=== PATIENT | male | born 1980 | race Caucasian/White ===

== ENCOUNTER 2017-09-21 02:42 | Inpatient (IN) ==
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
[2017-09-21] MEDS ORDERED: *HR* LORazepam 1 MG TABLET PO ONE (02:54)
[2017-09-21 03:29] LABS: Bilirubin,Urine Negative (Negative); Blood,Urine Negative (Negative); Clarity,Urine Cloudy (Clear); Color,Urine Dark Yellow (Yellow); Glucose,Urine (UA) Normal (Normal); Ketones,Urine 15 mg/dL (Negative); Leukocyte Esterase,Urine Trace (Negative); Nitrite,Urine Negative (Negative); Protein,Urine Trace mg/dL (Neg-Trace); Specific Gravity,Urine > 1.030 (1.010-1.025); Urobilinogen,Urine Normal (Normal)
[2017-09-21 03:31] LABS: Hyaline Casts,Urine None Seen per lpf (None-Few); RBC,Urine 0-3 per hpf (0-3); Squamous Epithelial Cell,Urine Few per lpf (None-Few); WBC,Urine 0-3 per hpf (0-3)
[2017-09-21 03:39] LABS: Amphetamine Screen,Urine Negative ng/mL (Cutoff=1000); Barbiturate Screen,Urine Negative ng/mL (Cutoff=200); Benzodiazepines Screen,Urine Negative ng/mL (Cutoff=200); Cannabinoid Screen,Urine Negative ng/mL (Cutoff = 50); Cocaine Screen,Urine Negative ng/mL (Cutoff= 300); Opiate Screen,Urine Negative ng/mL (Cutoff=300); Phencyclidine Screen,Urine Negative ng/mL (Cutoff=25)
[2017-09-21 03:47] LABS: Basophils % 0.3 %; Eosinophils % 0.1 %; Hematocrit 42.2 % (37.5-50.1); Hemoglobin 14.7 g/dL (12.9-16.9); Immature Granulocytes % 0.4 % (0-4); Lymphocytes # 1.9 K/mcL (0.6-4.6); Lymphocytes % 14.7 %; Mean Corpuscular HGB Conc 34.8 g/dL (31.6-35.5); Mean Corpuscular Hemoglobin 31.5 pg (28.0-33.3); Mean Corpuscular Volume 90.4 fL (83.0-100.0); Mean Platelet Volume 9.5 fL (9.4-12.4); Monocytes # 1.1 K/mcL (0.0-1.3); Monocytes % 8.6 %; Neutrophils # 9.6 K/mcL (1.6-8.9); Platelet Count 204 K/mcL (140-400); Red Blood Count 4.67 M/mcL (4.19-5.50); Red Cell Distribution Width 13.2 % (11.5-14.5); Segmented Neutrophils % 75.9 %
[2017-09-21 03:47] LABS: Bacteria,Urine Few per hpf (None-Few); Mucus,Urine Moderate (Few); Yeast,Urine Few per hpf (None Seen)
[2017-09-21 04:10] LABS: Acetaminophen < 10 mcg/mL (10-20); Alanine Aminotransferase 19 Units/L (7-52); Albumin 4.4 g/dL (3.5-5.7); Albumin/Globulin Ratio 1.8 (1.1-2.2); Alkaline Phosphatase 56 Units/L (34-104); Aspartate Amino Transferase 19 Units/L (13-39); BUN/Creatinine Ratio 20 (6-26); Bilirubin,Direct 0.3 mg/dL (0.0-0.2); Bilirubin,Indirect 0.8 mg/dL (0.0-1.2); Bilirubin,Total 1.1 mg/dL (0.3-1.0); Blood Urea Nitrogen 14 mg/dL (6-20); Calcium 8.6 mg/dL (8.6-10.3); Carbon Dioxide 26 mEq/L (23-29); Chloride 103 mEq/L (98-107); Ethanol < 10 mg/dL (Less than 10); Globulin 2.4 g/dL (2.4-3.5); Glucose 116 mg/dL (70-105); Osmolality,Calculated 285 (280-300); Potassium 3.4 mEq/L (3.5-5.1); Salicylate < 2.5 mg/dL (15.0-30.0); Sodium 137 mEq/L (136-145); Total Protein 6.8 g/dL (6.4-8.9); eGFR For African Americans > 60 (> 60); eGFR For Non-African Americans > 60 (> 60)
[2017-09-21 04:22] LABS: Thyroid Stimulating Hormone 0.109 mcIU/mL (0.340-5.600)
--- NOTE | 2017-09-21 07:08 | Emergency Department Note ---
Disposition Clinical Impression: Hallucinations, Medical clearance for psychiatric admission Disposition: Admitted As Inpatient Condition: Fair Referrals: NONE,PCP [Primary Care Provider] - Forms: ED Satisfaction Letter Time of Disposition: 11:28 General Adult HPI - General Chief complaint: ED Psychiatric Symptoms Stated complaint: hallucinations Time Seen by Provider: 09/21/17 02:45 Source: patient, EMS Mode of arrival: EMS Limitations: altered mental status - History of Present Illness HPI Narrative: Patient was signed out by the prior provider. Please see their recommendation for complete history and physical. Pain Scale: 0 - Related Data Home Medications Medication Instructions Recorded Confirmed No Known Home Drugs 09/21/17 09/21/17 Allergies Allergy/AdvReac Type Severity Reaction Status Date / Time vancomycin Allergy Redness of Verified 04/12/15 22:35 Skin Constitutional: Denies: fever, chills, weakness ENT ED: Denies: congestion Cardiovascular: Denies: chest pain Respiratory: Denies: dyspnea Gastrointestinal: Denies: abdominal pain Genitourinary: Denies: urgency, dysuria Musculoskeletal: Denies: back pain Integumentary: Denies: rash Neurological: Reports: confusion. Denies: headache Psychiatric: Reports: auditory hallucinations, visual hallucinations. Denies: anxiety, depression, suicidal thoughts, homicidal thoughts Past Medical History - Past Medical History Medical history: Reports: no medical history Surgical history: Reports: non-contributory Psychiatric history: Reports: no psych history - Social History Smoking Status: Current every day smoker Smokeless Tobacco Status: No Alcohol use: Reports: none Drug use: Reports: opiates, prescription drug abuse Physical Exam - General Limitations: altered mental status General appearance: alert, in no apparent distress Course Course Narrative: Briefly, the patient's a 36-year-old male who is recently incarcerated. Upon release from incarceration is noted the patient was hallucinating. Patient did have a history of benzodiazepine use prior to incarceration. Patient was noted to be given a dose of Ativan in the ED and it did not change or alter his hallucinations. At this time the patient is awaiting evaluation by psychiatry. Disposition is pending. - Consultations Consultation #1: 1A recommends an additional observation period in the ED and will admit to the Psych. Patient has already been here for 4hrs. Time: 07:12 Consultation #2: Psychiatry now wants the patient admitted to the medical service with psychiatry evaluation and consult. Concerns of hallucinations. Time: 11:28 Consultation #3: Discussed the patient with the on-call hospitalist who states he did not feel as a medical admit and will discuss the case with psychiatry. Time: 11:42 Additional Consultation(s): 1148: Hospitalist will admit the patient and psychiatry will evaluate the patient consult. Vital Signs Temperature 98.2 F 09/21/17 02:45 Pulse Rate 56 09/21/17 02:45 Respiratory Rate 12 09/21/17 02:45 Blood Pressure 127/82 09/21/17 02:45 O2 Sat by Pulse Oximetry 96 09/21/17 02:45 Temperature 98.2 F 09/21/17 02:45 Pulse Rate 78 09/21/17 06:12 Respiratory Rate 12 09/21/17 06:12 Blood Pressure 123/68 09/21/17 06:12 O2 Sat by Pulse Oximetry 98 09/21/17 06:12 Oxygen Delivery Oxygen Delivery Room Air Medical Decision Making - MDM Narrative Medical decision making narrative: Patient presents for altered mental status with hallucinations. Patient was evaluated by the prior provider workup was initiated. Patient likely has an element of drug-induced however the patient's urine drug screen initially was negative. Patient's been observed in the emergency department for 9 hours. Patient has no change in his initial presentation. Patient does not appear to have any infectious source related to meningitis or encephalitis. Patient has not had a fever neck stiffness. Patient will be admitted to the medicine service with psych consult. - Lab Data Lab results reviewed: Yes I reviewed the patient's lab results. Result diagrams: 09/21/17 03:34 09/21/17 03:34 Lab Results 09/21/17 09/21/17 09/21/17 Range/Units 03:15 03:15 03:34 WBC 12.6 H (4.3-11.1) K/mcL RBC 4.67 (4.19-5.50) M/mcL Hgb 14.7 (12.9-16.9) g/dL Hct 42.2 (37.5-50.1) % MCV 90.4 (83.0-100.0) fL MCH 31.5 (28.0-33.3) pg MCHC 34.8 (31.6-35.5) g/dL RDW 13.2 (11.5-14.5) % Plt Count 204 (140-400) K/mcL MPV 9.5 (9.4-12.4) fL Immature Gran % 0.4 (0-4) % Seg Neutrophils % 75.9 % Lymphocytes % 14.7 % Monocytes % 8.6 % Eosinophils % 0.1 % Basophils % 0.3 % Neutrophils # 9.6 H (1.6-8.9) K/mcL Lymphocytes # 1.9 (0.6-4.6) K/mcL Monocytes # 1.1 (0.0-1.3) K/mcL Eosinophils # 0.0 (0.0-0.6) K/mcL Basophils # 0.0 (0.0-0.2) K/mcL Sodium (136-145) mEq/L Potassium (3.5-5.1) mEq/L Chloride (98-107) mEq/L Carbon Dioxide (23-29) mEq/L BUN (6-20) mg/dL Creatinine (0.70-1.30) mg/dL Est GFR ( Amer) (> 60) Est GFR (Non-Af Amer) (> 60) BUN/Creatinine Ratio (6-26) Glucose (70-105) mg/dL Calculated Osmolality (280-300) Calcium (8.6-10.3) mg/dL Total Bilirubin (0.3-1.0) mg/dL Direct Bilirubin (0.0-0.2) mg/dL Indirect Bilirubin (0.0-1.2) mg/dL AST (13-39) Units/L ALT (7-52) Units/L Alkaline Phosphatase (34-104) Units/L Serum Total Protein (6.4-8.9) g/dL Albumin (3.5-5.7) g/dL Globulin (2.4-3.5) g/dL Albumin/Globulin Ratio (1.1-2.2) TSH (0.340-5.600) mcIU/mL Urine Color Dark Yellow (Yellow) Urine Clarity Cloudy A (Clear) Urine pH 6.0 (5.0-8.0) pH Units Ur Specific [place] > 1.030 H (1.010-1.025) Urine Protein Trace (Neg-Trace) mg/dL Urine Glucose (UA) Normal (Normal) mg/dL Urine Ketones 15 H (Negative) mg/dL Urine Blood Negative (Negative) Urine Nitrite Negative (Negative) Urine Bilirubin Negative (Negative) Urine Urobilinogen Normal (Normal) mg/dL Ur Leukocyte Esterase Trace H (Negative) Urine Microscopic RBC 0-3 (0-3) per hpf Urine Microscopic WBC 0-3 (0-3) per hpf Ur Squamous Epith Cells Few (None-Few) per lpf Urine Bacteria Few (None-Few) per hpf Hyaline Casts None Seen (None-Few) per lpf Urine Mucus Moderate H (Few) Urine Yeast Few H (None Seen) per hpf Salicylates (15.0-30.0) mg/dL Urine Opiates Screen Negative (Ffrjsc=948) ng/mL Acetaminophen (10-20) mcg/mL Ur Barbiturates Screen Negative (Ghixhd=609) ng/mL Ur Phencyclidine Scrn Negative (Cutoff=25) ng/mL Ur Amphetamines Screen Negative (Lhqwhn=5212) ng/mL U Benzodiazepines Scrn Negative (Qtsrym=530) ng/mL Urine Cocaine Screen Negative (Cutoff= 300) ng/mL U Marijuana (THC) Screen Negative (Cutoff = 50) ng/mL Ur Drug Screen Interp See Below Ethyl Alcohol (Less than 10) mg/dL 09/21/17 Range/Units 03:34 WBC (4.3-11.1) K/mcL RBC (4.19-5.50) M/mcL Hgb (12.9-16.9) g/dL Hct (37.5-50.1) % MCV (83.0-100.0) fL MCH (28.0-33.3) pg MCHC (31.6-35.5) g/dL RDW (11.5-14.5) % Plt Count (140-400) K/mcL MPV (9.4-12.4) fL Immature Gran % (0-4) % Seg Neutrophils % % Lymphocytes % % Monocytes % % Eosinophils % % Basophils % % Neutrophils # (1.6-8.9) K/mcL Lymphocytes # (0.6-4.6) K/mcL Monocytes # (0.0-1.3) K/mcL Eosinophils # (0.0-0.6) K/mcL Basophils # (0.0-0.2) K/mcL Sodium 137 (136-145) mEq/L Potassium 3.4 L (3.5-5.1) mEq/L Chloride 103 (98-107) mEq/L Carbon Dioxide 26 (23-29) mEq/L BUN 14 (6-20) mg/dL Creatinine 0.69 L (0.70-1.30) mg/dL Est GFR ( Amer) > 60 (> 60) Est GFR (Non-Af Amer) > 60 (> 60) BUN/Creatinine Ratio 20 (6-26) Glucose 116 H (70-105) mg/dL Calculated Osmolality 285 (280-300) Calcium 8.6 (8.6-10.3) mg/dL Total Bilirubin 1.1 H (0.3-1.0) mg/dL Direct Bilirubin 0.3 H (0.0-0.2) mg/dL Indirect Bilirubin 0.8 (0.0-1.2) mg/dL AST 19 (13-39) Units/L ALT 19 (7-52) Units/L Alkaline Phosphatase 56 (34-104) Units/L Serum Total Protein 6.8 (6.4-8.9) g/dL Albumin 4.4 (3.5-5.7) g/dL Globulin 2.4 (2.4-3.5) g/dL Albumin/Globulin Ratio 1.8 (1.1-2.2) TSH 0.109 L (0.340-5.600) mcIU/mL Urine Color (Yellow) Urine Clarity (Clear) Urine pH (5.0-8.0) pH Units Ur Specific [place] (1.010-1.025) Urine Protein (Neg-Trace) mg/dL Urine Glucose (UA) (Normal) mg/dL Urine Ketones (Negative) mg/dL Urine Blood (Negative) Urine Nitrite (Negative) Urine Bilirubin (Negative) Urine Urobilinogen (Normal) mg/dL Ur Leukocyte Esterase (Negative) Urine Microscopic RBC (0-3) per hpf Urine Microscopic WBC (0-3) per hpf Ur Squamous Epith Cells (None-Few) per lpf Urine Bacteria (None-Few) per hpf Hyaline Casts (None-Few) per lpf Urine Mucus (Few) Urine Yeast (None Seen) per hpf Salicylates < 2.5 L (15.0-30.0) mg/dL Urine Opiates Screen (Yyrygm=324) ng/mL Acetaminophen < 10 L (10-20) mcg/mL Ur Barbiturates Screen (Tfanwz=344) ng/mL Ur Phencyclidine Scrn (Cutoff=25) ng/mL Ur Amphetamines Screen (Nkmidr=8321) ng/mL U Benzodiazepines Scrn (Lrnlit=037) ng/mL Urine Cocaine Screen (Cutoff= 300) ng/mL U Marijuana (THC) Screen (Cutoff = 50) ng/mL Ur Drug Screen Interp Ethyl Alcohol < 10 (Less than 10) mg/dL - Radiology Data Radiology results reviewed: Yes I reviewed the patient's radiology results. Head CT 09/21/17 02:49 IMPRESSION: No acute intracranial abnormality. D/ / Quinton Kelly MD / Quinton Kelly MD Interpreting Provider: Quinton Kelly MD Cynthia - Cynthia Situation: Demographics Background: Presenting Complaint Assessment: Vital Signs, Patient/Family Expectation Recommendation: Barrier(s) to disposition, Recommendation based on pending studies, treatments, or consults Cynthia Report Given to: Dr. JOHN Marie Repor Time: 11:50
[2017-09-21] MEDS ORDERED: Naloxone 0.4 MG/ML INJ IVP PRN (12:06)
[2017-09-21] MEDS ORDERED: traMADol 50 MG TABLET PO PRN (12:06)
[2017-09-21] MEDS ORDERED: Acetaminophen 325 MG TABLET PO PRN (12:06)
[2017-09-21] MEDS ORDERED: *HR* LORazepam 2 MG/ML VIAL IVP PRN (12:09)
[2017-09-21] MEDS ORDERED: Haloperidol Lactate 5 MG/ML VIAL IVP PRN (12:10)
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
--- NOTE | 2017-09-21 13:07 | Electrocardiograph Report ---
[facility] Test Date: 2017-09-21 Pat Name: Maykel French Department: 103 Room: 3B41 Gender: M Snow Ranger: LIZBETH : 1980 Requested By: Ten Carrera Order Number: [id number] Reading MD: Dru Womack Measurements Intervals [place] Rate: 62 P: 76 MN: 141 QRS: 73 QRSD: 105 T: 76 QT: 431 QTc: 437 Interpretive Statements SINUS RHYTHM WITH SINUS ARRHYTHMIA Electronically Signed On 09-21-2017 13:05:18 EDT by Dru Womack
[2017-09-21] MEDS: *HR* LORazepam 2 MG/ML VIAL IVP PRN ×3 (16:25→23:47)
[2017-09-21] MEDS: *HR* Heparin 5,000 UNIT/ML VIAL SQ SCH (17:08)
[2017-09-21] MEDS ORDERED: Ziprasidone injection 20 MG/ML VIAL IM ONE (17:49)
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
[2017-09-21] MEDS ORDERED: 0.9 % Sodium Chloride 500 ML ONE (19:55)
[2017-09-21] MEDS: Dexmedetomidine HCl 400 MCG/100 ML MLS IVC SCH (20:06)
[2017-09-22] MEDS: Dexmedetomidine HCl 400 MCG/100 ML MLS IVC SCH (00:54)
[2017-09-22] MEDS: *HR* LORazepam 2 MG/ML VIAL IVP PRN ×3 (01:49→22:00)
[2017-09-22 04:50] LABS: Basophils % 0.5 %; Eosinophils % 0.5 %; Hematocrit 43.6 % (37.5-50.1); Hemoglobin 15.2 g/dL (12.9-16.9); Immature Granulocytes % 0.3 % (0-4); Lymphocytes # 2.4 K/mcL (0.6-4.6); Lymphocytes % 29.9 %; Mean Corpuscular HGB Conc 34.9 g/dL (31.6-35.5); Mean Corpuscular Hemoglobin 31.3 pg (28.0-33.3); Mean Corpuscular Volume 89.7 fL (83.0-100.0); Mean Platelet Volume 9.4 fL (9.4-12.4); Monocytes # 0.8 K/mcL (0.0-1.3); Monocytes % 10.6 %; Neutrophils # 4.6 K/mcL (1.6-8.9); Platelet Count 187 K/mcL (140-400); Red Blood Count 4.86 M/mcL (4.19-5.50); Red Cell Distribution Width 12.8 % (11.5-14.5); Segmented Neutrophils % 58.2 %
[2017-09-22 05:09] LABS: BUN/Creatinine Ratio 15 (6-26); Blood Urea Nitrogen 11 mg/dL (6-20); Calcium 8.6 mg/dL (8.6-10.3); Carbon Dioxide 29 mEq/L (23-29); Chloride 109 mEq/L (98-107); Glucose 112 mg/dL (70-105); Osmolality,Calculated 292 (280-300); Potassium 3.8 mEq/L (3.5-5.1); Sodium 141 mEq/L (136-145); eGFR For African Americans > 60 (> 60); eGFR For Non-African Americans > 60 (> 60)
[2017-09-22] MEDS: *HR* Heparin 5,000 UNIT/ML VIAL SQ SCH ×2 (07:07→16:50)
--- NOTE | 2017-09-22 08:49 | Consult Note ---
Date of Encounter: 09/22/17 Time of Encounter: 08:20 Assessment & Recommendation (1) Mental and behavioural disorders due to use of opioids, withdrawal state Current visit: Yes Status: Acute Assessment & Recommendation: Patient needs medical stabilization at present. will follow up. (2) Opioid dependence Current visit: Yes Status: Acute Qualifiers: Substance use status: in withdrawal Qualified Code(s): F11.23 - Opioid dependence with withdrawal History of Present Illness Patient: new to practice Requesting Physician: Kennedi Mejia MD Reason for consult: psychosis History of present illness: Mr. French is a 36 year old male consulted today for psychosis. Patient was seen at bedside , her GF Ms evangelista Morrissey was with him , most information was from his girl friend as patient was in and out of being sedation. Patient has long h/o no psychiatribc treatment but h/o poly substance use and has no period of soberity as per his GF of 3 years, he was pulled over and taken to prison for possession and after 3-4 days in prison he started acting weird and got worse so was sent directly to hospital , his tox was negative but he has been using xanax more than 7 mg /day and percocet and suboxone , he has been agitated and has altered mental status. 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 she herself is on suboxone and it is prescribed , she denies any drugs , she is stating he is a pot head and she is surprised his drug screen is negative. Patient stated he is [facility] and here for his [facility], he was confused and not able to give much information. Past psych none , h/o opiod, suboxone ,marijuana use , no treatment or rehab in past. Social hx , lives with GF and has 4 weeks old baby , he has court date on . A/P : OPIOID AND SEDATIVE AND HYPNOTIC WITHDRAWL . CANNABIS ABUSE BY HISTORY OPIOD DEPENDENCE. At present patient need medical withdrawal stabilization and once stable will evaluate for inpatient psychiatric treatment. recommend anticonvulsant and benzo taper . Thank you for consult and involving us in his care. will follow. CC: Kennedi Mejia MD Past Med Surg Social Fam HX - Past Medical History Medical history: no medical history - Past Psychiatric History Psychiatric history: Reports: no psych history Family psychiatric history: Unknown Family History of Suicide: Unknown - Past Surgical History Surgical History: non-contributory - Social History Smoking Status: Current every day smoker Smokeless Tobacco Status: No Alcohol use: none Drug use: opiates, marijuana, prescription drug abuse, other Medications & Allergies No Known Home Drugs 09/21/17 [History] 3 Allergy/AdvReac Type Severity Reaction Status Date / Time vancomycin Allergy Redness of Verified 04/12/15 22:35 Skin Psychiatry Exam - Constitutional Vitals: Temp Pulse Resp BP Pulse Ox 98.2 F 69 14 173/69 96 09/21/17 02:45 09/22/17 05:36 09/22/17 05:36 09/22/17 08:00 09/22/17 05:36 General appearance: average - Musculoskeletal Gait: other Station: other - Psychiatric Patient Orientation: Yes Other (patient not oriented at present) Level of alertness: Sedated Speech Volume: Soft/Quiet (unable to do other mental status examination as patient confused and sedated.) Results - Labs Labs: Laboratory Last Values WBC 8.0 K/mcL (4.3-11.1) 09/22/17 04:34 RBC 4.86 M/mcL (4.19-5.50) 09/22/17 04:34 Hgb 15.2 g/dL (12.9-16.9) 09/22/17 04:34 Hct 43.6 % (37.5-50.1) 09/22/17 04:34 MCV 89.7 fL (83.0-100.0) 09/22/17 04:34 MCH 31.3 pg (28.0-33.3) 09/22/17 04:34 MCHC 34.9 g/dL (31.6-35.5) 09/22/17 04:34 RDW 12.8 % (11.5-14.5) 09/22/17 04:34 Plt Count 187 K/mcL (140-400) 09/22/17 04:34 MPV 9.4 fL (9.4-12.4) 09/22/17 04:34 Immature Gran % 0.3 % (0-4) 09/22/17 04:34 Seg Neutrophils % 58.2 % 09/22/17 04:34 Lymphocytes % 29.9 % 09/22/17 04:34 Monocytes % 10.6 % 09/22/17 04:34 Eosinophils % 0.5 % 09/22/17 04:34 Basophils % 0.5 % 09/22/17 04:34 Neutrophils # 4.6 K/mcL (1.6-8.9) 09/22/17 04:34 Lymphocytes # 2.4 K/mcL (0.6-4.6) 09/22/17 04:34 Monocytes # 0.8 K/mcL (0.0-1.3) 09/22/17 04:34 Eosinophils # 0.0 K/mcL (0.0-0.6) 09/22/17 04:34 Basophils # 0.0 K/mcL (0.0-0.2) 09/22/17 04:34 Sodium 141 mEq/L (136-145) 09/22/17 04:34 Potassium 3.8 mEq/L (3.5-5.1) 09/22/17 04:34 Chloride 109 mEq/L (98-107) H 09/22/17 04:34 Carbon Dioxide 29 mEq/L (23-29) 09/22/17 04:34 BUN 11 mg/dL (6-20) 09/22/17 04:34 Creatinine 0.72 mg/dL (0.70-1.30) 09/22/17 04:34 Est GFR ( Amer) > 60 (> 60) 09/22/17 04:34 Est GFR (Non-Af Amer) > 60 (> 60) 09/22/17 04:34 BUN/Creatinine Ratio 15 (6-26) 09/22/17 04:34 Glucose 112 mg/dL (70-105) H 09/22/17 04:34 Calculated Osmolality 292 (280-300) 09/22/17 04:34 Calcium 8.6 mg/dL (8.6-10.3) 09/22/17 04:34 Total Bilirubin 1.1 mg/dL (0.3-1.0) H 09/21/17 03:34 Direct Bilirubin 0.3 mg/dL (0.0-0.2) H 09/21/17 03:34 Indirect Bilirubin 0.8 mg/dL (0.0-1.2) 09/21/17 03:34 AST 19 Units/L (13-39) 09/21/17 03:34 ALT 19 Units/L (7-52) 09/21/17 03:34 Alkaline Phosphatase 56 Units/L (34-104) 09/21/17 03:34 Serum Total Protein 6.8 g/dL (6.4-8.9) 09/21/17 03:34 Albumin 4.4 g/dL (3.5-5.7) 09/21/17 03:34 Globulin 2.4 g/dL (2.4-3.5) 09/21/17 03:34 Albumin/Globulin Ratio 1.8 (1.1-2.2) 09/21/17 03:34 TSH 0.109 mcIU/mL (0.340-5.600) L 09/21/17 03:34 Free T4 1.12 ng/dl (0.70-2.00) 09/21/17 13:29 Urine Color Dark Yellow (Yellow) 09/21/17 03:15 Urine Clarity Cloudy (Clear) A 09/21/17 03:15 Urine pH 6.0 pH Units (5.0-8.0) 09/21/17 03:15 Ur Specific [place] > 1.030 (1.010-1.025) H 09/21/17 03:15 Urine Protein Trace mg/dL (Neg-Trace) 09/21/17 03:15 Urine Glucose (UA) Normal mg/dL (Normal) 09/21/17 03:15 Urine Ketones 15 mg/dL (Negative) H 09/21/17 03:15 Urine Blood Negative (Negative) 09/21/17 03:15 Urine Nitrite Negative (Negative) 09/21/17 03:15 Urine Bilirubin Negative (Negative) 09/21/17 03:15 Urine Urobilinogen Normal mg/dL (Normal) 09/21/17 03:15 Ur Leukocyte Esterase Trace (Negative) H 09/21/17 03:15 Urine Microscopic RBC 0-3 per hpf (0-3) 09/21/17 03:15 Urine Microscopic WBC 0-3 per hpf (0-3) 09/21/17 03:15 Ur Squamous Epith Cells Few per lpf (None-Few) 09/21/17 03:15 Urine Bacteria Few per hpf (None-Few) 09/21/17 03:15 Hyaline Casts None Seen per lpf (None-Few) 09/21/17 03:15 Urine Mucus Moderate (Few) H 09/21/17 03:15 Urine Yeast Few per hpf (None Seen) H 09/21/17 03:15 Salicylates < 2.5 mg/dL (15.0-30.0) L 09/21/17 03:34 Urine Opiates Screen Negative ng/mL (Wmfstb=925) 09/21/17 03:15 Acetaminophen < 10 mcg/mL (10-20) L 09/21/17 03:34 Ur Barbiturates Screen Negative ng/mL (Fnejub=975) 09/21/17 03:15 Ur Phencyclidine Scrn Negative ng/mL (Cutoff=25) 09/21/17 03:15 Ur Amphetamines Screen Negative ng/mL (Qbjqud=4551) 09/21/17 03:15 U Benzodiazepines Scrn Negative ng/mL (Oahmqz=796) 09/21/17 03:15 Urine Cocaine Screen Negative ng/mL (Cutoff= 300) 09/21/17 03:15 U Marijuana (THC) Screen Negative ng/mL (Cutoff = 50) 09/21/17 03:15 Ur Drug Screen Interp See Below 09/21/17 03:15 Ethyl Alcohol < 10 mg/dL (Less than 10) 09/21/17 03:34 Hep Bs Antigen Cancelled 09/21/17 20:38 Hepatitis C Ab Screen Cancelled 09/21/17 20:38 HIV Ag/Ab Combo Qual Cancelled 09/21/17 20:38 Consult Discharge Plan - Plan Referrals: NONE,PCP [Primary Care Provider] -
[2017-09-22] MEDS: Nicotine 21 MG PATCH.TD24 TD SCH ×2 (13:27→22:00)
[2017-09-22] MEDS ORDERED: OLANZapine 10 MG VIAL IM PRN (14:48)
[2017-09-22] MEDS ORDERED: *HR* LORazepam 2 MG/ML VIAL IVP PRN (14:49)
[2017-09-22] MEDS ORDERED: Ibuprofen 800 MG TABLET PO PRN (15:00)
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
[2017-09-23 03:54] LABS: Basophils # 0.1 K/mcL (0.0-0.2); Basophils % 0.5 %; Eosinophils # 0.1 K/mcL (0.0-0.6); Eosinophils % 0.7 %; Hemoglobin 14.3 g/dL (12.9-16.9); Immature Granulocytes % 0.4 % (0-4); Lymphocytes # 3.9 K/mcL (0.6-4.6); Lymphocytes % 34.3 %; Mean Corpuscular HGB Conc 34.9 g/dL (31.6-35.5); Mean Corpuscular Hemoglobin 31.3 pg (28.0-33.3); Mean Corpuscular Volume 89.7 fL (83.0-100.0); Mean Platelet Volume 9.4 fL (9.4-12.4); Monocytes # 0.9 K/mcL (0.0-1.3); Monocytes % 8.3 %; Neutrophils # 6.3 K/mcL (1.6-8.9); Platelet Count 199 K/mcL (140-400); Red Blood Count 4.57 M/mcL (4.19-5.50); Segmented Neutrophils % 55.8 %
[2017-09-23 04:04] LABS: BUN/Creatinine Ratio 18 (6-26); Blood Urea Nitrogen 11 mg/dL (6-20); Calcium 8.4 mg/dL (8.6-10.3); Carbon Dioxide 26 mEq/L (23-29); Chloride 109 mEq/L (98-107); Glucose 118 mg/dL (70-105); Osmolality,Calculated 292 (280-300); Potassium 3.4 mEq/L (3.5-5.1); Sodium 141 mEq/L (136-145); eGFR For African Americans > 60 (> 60); eGFR For Non-African Americans > 60 (> 60)
[2017-09-23] MEDS: *HR* Heparin 5,000 UNIT/ML VIAL SQ SCH ×2 (05:05→18:05)
[2017-09-23] MEDS: *HR* LORazepam 2 MG/ML VIAL IVP PRN ×3 (05:05→08:47)
--- NOTE | 2017-09-23 11:56 | Internal Med Progress Note ---
Date of Encounter: 09/23/17 Time of Encounter: 11:54 - Assessment and plan (1) Hallucinations Current Visit: Yes Status: Acute Assessment and plan: Having auditory hallucinations today. Girlfriend thinks he is still paranoid. He was previously having symptoms of both visual and auditory hallucinations, delusions, paranoia, agitation, and insomnia. Psychiatry consulted; appreciate input. At this point, I do not think he is withdrawing from any drugs or medications. He is completely asymptomatic medically. However, he is still having hallucinations. Now that he is medically clear, will get psychiatry to reevaluate him today and consider inpatient psychiatric treatment. We will continue CIWA protocol with ativan PRN for withdrawal. We will also add zyprexa IM PRN for agitation. (2) Agitation Current Visit: Yes Status: Acute Assessment and plan: Management as per above. (3) Delusion Current Visit: Yes Status: Acute Assessment and plan: Management as per above. (4) Paranoia Current Visit: Yes Status: Acute Assessment and plan: Management as per above. (5) Opioid withdrawal Current Visit: Yes Status: Resolved Assessment and plan: Resolved. Management as per above. (6) Benzodiazepine withdrawal Current Visit: Yes Status: Resolved Assessment and plan: Resolved. Management as per above. Qualifiers: Complication of substance-induced condition: with unspecified complication Qualified Code(s): F13.239 - Sedative, hypnotic or anxiolytic dependence with withdrawal, unspecified (7) Nicotine dependence Current Visit: Yes Status: Acute Assessment and plan: Continue nicotine transdermal 21 mg QD. Counselled on smoking cessation. Qualifiers: Nicotine product type: cigarettes Substance use status: unspecified nicotine-induced disorder Qualified Code(s): F17.219 - Nicotine dependence, cigarettes, with unspecified nicotine-induced disorders (8) Hypokalemia Current Visit: Yes Status: Acute Assessment and plan: Borderline low. Give KCl 20 mEq PO once. Recheck BMP in AM. (9) DVT prophylaxis Current Visit: Yes Status: Acute Assessment and plan: Continue SQ heparin. - Time Spent With Patient Total time spent is greater than 50% in coordination of care (as documented) at patient's floor/unit and/or counseling patient: less than 15 minutes - Subjective Interval history: Patient had no acute events overnight. Nursing staff states that needed 2 doses of Ativan overnight per CIWA scale, but was also arguing with girlfriend. No medications required so far today. He is resting peacefully in bed with girlfriend. He is still having auditory hallucinations at this time. He seems to be less paranoid. He has no medical complaints at this time and states that he is feeling "good." - Constitutional Vitals: Temp Pulse Resp BP Pulse Ox 98.9 F 70 16 129/84 98 09/23/17 11:33 09/23/17 11:33 09/23/17 11:33 09/23/17 11:33 09/23/17 11:33 General appearance: Present: cooperative, A&O X 3, pleasant, no acute distress, answers questions appropriately - Respiratory Respiratory exam: Present: CTAB. Absent: accessory muscle use, rales, rhonchi, wheezes Additional comments: Normal WOB - Cardiovascular Cardiovascular exam: Present: RRR, +S1, +S2. Absent: diastolic murmur, gallop, rubs, systolic murmur Additional comments: No BLE edema - GI/Abdominal GI/Abdominal exam: Present: normal bowel sounds, soft. Absent: distended, hepatomegaly, mass, splenomegaly, tenderness - Psychiatric Psychiatric exam: Present: normal affect, normal mood. Absent: agitated, anxious, depressed Additional comments: Auditory hallucinations - Skin Skin exam: Present: dry, intact, warm. Absent: cyanosis, rash Internal Medicine: Result - Labs CBC & Chem 7: 09/23/17 03:32 09/23/17 03:32 Labs: Short CBC 09/23/17 Range/Units 03:32 WBC 11.2 H (4.3-11.1) K/mcL Hgb 14.3 (12.9-16.9) g/dL Hct 41.0 (37.5-50.1) % Plt Count 199 (140-400) K/mcL Neutrophils # 6.3 (1.6-8.9) K/mcL BMP 09/23/17 03:32 Sodium 141 Potassium 3.4 L Chloride 109 H Carbon Dioxide 26 BUN 11 Creatinine 0.61 L Glucose 118 H Calcium 8.4 L Consult Discharge Plan - Plan Referrals: Jerry Enriquez DO [Resident] - 09/30/17 10:15 am
--- NOTE | 2017-09-23 13:38 | Consult Note ---
Date of Encounter: 09/23/17 Time of Encounter: 13:32 Assessment & Recommendation (1) Benzodiazepine withdrawal Current visit: Yes Status: Resolved Assessment & Recommendation: Would benefit from an antipsychotic. Recommend scheduling an antipsychotic as opposed to giving one prn. Doubt this is a primary thought disorder. Suspect psychosis related to benzodiazepine withdrawal. Can start Risperdal 1mg BID or Zyprexa 5mg BID with Benadryl or Cogentin available as a prn in case of any EPS side effects. Doubt he needs medication nursing home but an antipsychotic should help him clear faster. Can admit to inpatient psych but needs to be off IV meds and finished with needing to medicate any acute benzo withdrawal first. Qualifiers: Complication of substance-induced condition: with unspecified complication Qualified Code(s): F13.239 - Sedative, hypnotic or anxiolytic dependence with withdrawal, unspecified History of Present Illness Requesting Physician: Kennedi Mejia MD Reason for consult: psychosis History of present illness: Mr. French is a 36 year old male who was admitted medically from alf secondary to acute confusion. Client admits to using Percocet, Suboxone, and Xanax prior to his arrest. Girlfriend present and states client used large doses of Xanax. Presentation likely secondary to benzodiazepine withdrawal. Client still having hallucinatory experiences. When first admitted he was agitated in addition to being floridly psychotic. He is now calm. Precedx drip discontinued yesterday. Last dose of Ativan given this morning. Vital signs have been stable. Client is still very fearful. Accepts that some of what he went through was related to drug use but still believes a lot of it was real. Still hearing voices telling him he is . Tearful. Denies SI/HI but girlfriend states he cannot return home in this state as they have young children in the house. No history of mental illness. Would benefit from an antipsychotic. Client is agreeable. CC: Kennedi Mejia MD Past Med Surg Social Fam HX - Past Medical History Medical history: no medical history - Past Psychiatric History Psychiatric history: Reports: no psych history Family psychiatric history: No Family History of Suicide: Unknown - Past Surgical History Surgical History: non-contributory - Social History Smoking Status: Current every day smoker Smokeless Tobacco Status: No Alcohol use: none Drug use: opiates, marijuana, prescription drug abuse, other Medications & Allergies No Known Home Drugs 09/21/17 [History] 3 Allergy/AdvReac Type Severity Reaction Status Date / Time vancomycin Allergy Redness of Verified 04/12/15 22:35 Skin Review of Systems Constitutional: Denies: fever, chills, weakness, weight change Eyes: Denies: eye pain, vision change Ears, Nose, Throat: Denies: ear pain, throat pain, dental pain, hearing loss, congestion Cardiovascular: Denies: chest pain, palpitations, dyspnea on exertion Respiratory: Denies: cough, dyspnea, wheezes Gastrointestinal: Denies: abdominal pain, nausea, vomiting, diarrhea, constipation Genitourinary male: Denies: urgency, dysuria, frequency, genital lesions Musculoskeletal: Denies: joint swelling, joint pain Integumentary: Denies: rash, lesions, pruritus Neurological: Denies: headache, weakness, numbness, memory loss Endocrine: Denies: fatigue, heat or cold intolerance Hematologic/Lymphatic: Denies: easy bruising, lymphadenopathy Allergic/Immunologic: Denies: urticaria, itchy eyes Psychiatry Exam - Constitutional Vitals: Temp Pulse Resp BP Pulse Ox 98.9 F 70 16 129/84 98 09/23/17 11:33 09/23/17 11:33 09/23/17 11:33 09/23/17 11:33 09/23/17 11:33 General appearance: age & developmentally appropriate, well-groomed, well- nourished - Musculoskeletal Gait: normal Station: relaxed Strength & Tone: normal for patient - Psychiatric Patient Orientation: Yes Person, Yes Time, Yes Place Level of alertness: Alert Behavior: calm, cooperative Psychomotor activity: Normal Eye Contact: Maintains Eye Contact Mood Description: Anxious Affect description: congruent with mood Speech Volume: Normal Speech pattern: normal rate, normal rhythm, normal tone, fluent, spontaneous Language & Vocabulary: consistent with education Thought Process: Linear, Goal Oriented Thought Content: No Suicidal ideation, No Homicidal ideation, Yes Overt delusions, Yes Paranoid delusion Perceptual Disturbances: Yes Auditory hallucinations Attention Span Ability: Capable of Focused Attention Memory Description: Grossly Intact Patient Reliability: Reliable Historian Fund of knowledge: Yes abstraction ability, Yes aware of current events Intelligence Estimate: Below Average Judgment: Limited Insight: Partial Results - Labs Labs: Laboratory Last Values WBC 11.2 K/mcL (4.3-11.1) H 09/23/17 03:32 RBC 4.57 M/mcL (4.19-5.50) 09/23/17 03:32 Hgb 14.3 g/dL (12.9-16.9) 09/23/17 03:32 Hct 41.0 % (37.5-50.1) 09/23/17 03:32 MCV 89.7 fL (83.0-100.0) 09/23/17 03:32 MCH 31.3 pg (28.0-33.3) 09/23/17 03:32 MCHC 34.9 g/dL (31.6-35.5) 09/23/17 03:32 RDW 13.0 % (11.5-14.5) 09/23/17 03:32 Plt Count 199 K/mcL (140-400) 09/23/17 03:32 MPV 9.4 fL (9.4-12.4) 09/23/17 03:32 Immature Gran % 0.4 % (0-4) 09/23/17 03:32 Seg Neutrophils % 55.8 % 09/23/17 03:32 Lymphocytes % 34.3 % 09/23/17 03:32 Monocytes % 8.3 % 09/23/17 03:32 Eosinophils % 0.7 % 09/23/17 03:32 Basophils % 0.5 % 09/23/17 03:32 Neutrophils # 6.3 K/mcL (1.6-8.9) 09/23/17 03:32 Lymphocytes # 3.9 K/mcL (0.6-4.6) 09/23/17 03:32 Monocytes # 0.9 K/mcL (0.0-1.3) 09/23/17 03:32 Eosinophils # 0.1 K/mcL (0.0-0.6) 09/23/17 03:32 Basophils # 0.1 K/mcL (0.0-0.2) 09/23/17 03:32 Sodium 141 mEq/L (136-145) 09/23/17 03:32 Potassium 3.4 mEq/L (3.5-5.1) L 09/23/17 03:32 Chloride 109 mEq/L (98-107) H 09/23/17 03:32 Carbon Dioxide 26 mEq/L (23-29) 09/23/17 03:32 BUN 11 mg/dL (6-20) 09/23/17 03:32 Creatinine 0.61 mg/dL (0.70-1.30) L 09/23/17 03:32 Est GFR ( Amer) > 60 (> 60) 09/23/17 03:32 Est GFR (Non-Af Amer) > 60 (> 60) 09/23/17 03:32 BUN/Creatinine Ratio 18 (6-26) 09/23/17 03:32 Glucose 118 mg/dL (70-105) H 09/23/17 03:32 Calculated Osmolality 292 (280-300) 09/23/17 03:32 Calcium 8.4 mg/dL (8.6-10.3) L 09/23/17 03:32 Total Bilirubin 1.1 mg/dL (0.3-1.0) H 09/21/17 03:34 Direct Bilirubin 0.3 mg/dL (0.0-0.2) H 09/21/17 03:34 Indirect Bilirubin 0.8 mg/dL (0.0-1.2) 09/21/17 03:34 AST 19 Units/L (13-39) 09/21/17 03:34 ALT 19 Units/L (7-52) 09/21/17 03:34 Alkaline Phosphatase 56 Units/L (34-104) 09/21/17 03:34 Serum Total Protein 6.8 g/dL (6.4-8.9) 09/21/17 03:34 Albumin 4.4 g/dL (3.5-5.7) 09/21/17 03:34 Globulin 2.4 g/dL (2.4-3.5) 09/21/17 03:34 Albumin/Globulin Ratio 1.8 (1.1-2.2) 09/21/17 03:34 TSH 0.109 mcIU/mL (0.340-5.600) L 09/21/17 03:34 Free T4 1.12 ng/dl (0.70-2.00) 09/21/17 13:29 Urine Color Dark Yellow (Yellow) 09/21/17 03:15 Urine Clarity Cloudy (Clear) A 09/21/17 03:15 Urine pH 6.0 pH Units (5.0-8.0) 09/21/17 03:15 Ur Specific [place] > 1.030 (1.010-1.025) H 09/21/17 03:15 Urine Protein Trace mg/dL (Neg-Trace) 09/21/17 03:15 Urine Glucose (UA) Normal mg/dL (Normal) 09/21/17 03:15 Urine Ketones 15 mg/dL (Negative) H 09/21/17 03:15 Urine Blood Negative (Negative) 09/21/17 03:15 Urine Nitrite Negative (Negative) 09/21/17 03:15 Urine Bilirubin Negative (Negative) 09/21/17 03:15 Urine Urobilinogen Normal mg/dL (Normal) 09/21/17 03:15 Ur Leukocyte Esterase Trace (Negative) H 09/21/17 03:15 Urine Microscopic RBC 0-3 per hpf (0-3) 09/21/17 03:15 Urine Microscopic WBC 0-3 per hpf (0-3) 09/21/17 03:15 Ur Squamous Epith Cells Few per lpf (None-Few) 09/21/17 03:15 Urine Bacteria Few per hpf (None-Few) 09/21/17 03:15 Hyaline Casts None Seen per lpf (None-Few) 09/21/17 03:15 Urine Mucus Moderate (Few) H 09/21/17 03:15 Urine Yeast Few per hpf (None Seen) H 09/21/17 03:15 Salicylates < 2.5 mg/dL (15.0-30.0) L 09/21/17 03:34 Urine Opiates Screen Negative ng/mL (Uozrfc=393) 09/21/17 03:15 Acetaminophen < 10 mcg/mL (10-20) L 09/21/17 03:34 Ur Barbiturates Screen Negative ng/mL (Jykgmu=927) 09/21/17 03:15 Ur Phencyclidine Scrn Negative ng/mL (Cutoff=25) 09/21/17 03:15 Ur Amphetamines Screen Negative ng/mL (Oxkbqk=2172) 09/21/17 03:15 U Benzodiazepines Scrn Negative ng/mL (Otxjzw=965) 09/21/17 03:15 Urine Cocaine Screen Negative ng/mL (Cutoff= 300) 09/21/17 03:15 U Marijuana (THC) Screen Negative ng/mL (Cutoff = 50) 09/21/17 03:15 Ur Drug Screen Interp See Below 09/21/17 03:15 Ethyl Alcohol < 10 mg/dL (Less than 10) 09/21/17 03:34 Hep Bs Antigen Cancelled 09/21/17 20:38 Hepatitis C Ab Screen Cancelled 09/21/17 20:38 HIV Ag/Ab Combo Qual Cancelled 09/21/17 20:38 Consult Discharge Plan - Plan Referrals: Jerry Enriquez DO [Resident] - 09/30/17 10:15 am
[2017-09-23] MEDS ORDERED: OLANZapine 5 MG TAB.RAPDIS PO SCH (14:45)
[2017-09-23 15:10] VITALS: BP 128/79
--- NOTE | 2017-09-23 17:38 | Discharge Summary ---
- NOTES TO OUTPATIENT PROVIDER Notes to Outpatient Provider: Follow up with psychiatrist at acute inpatient psychiatric floor. Recheck BMP tomorrow (hypokalemia). Orders not resulted at time of discharge: Pending orders 09/24/17 04:00 Basic Metabolic Panel AM 0400 CBC [Complete Blood Count] [HEME] AM 0400 Date of Encounter: 09/23/17 Time of Encounter: 17:36 - Discharge Diagnosis (1) Hallucinations Priority: Primary Status: Acute (2) Agitation Priority: Secondary Status: Acute (3) Delusion Priority: Secondary Status: Acute (4) Paranoia Priority: Secondary Status: Acute (5) Opioid withdrawal Priority: Secondary Status: Resolved (6) Benzodiazepine withdrawal Priority: Secondary Status: Resolved Qualifiers: Complication of substance-induced condition: with unspecified complication Qualified Code(s): F13.239 - Sedative, hypnotic or anxiolytic dependence with withdrawal, unspecified (7) Nicotine dependence Priority: Secondary Status: Acute Qualifiers: Nicotine product type: cigarettes Substance use status: unspecified nicotine-induced disorder Qualified Code(s): F17.219 - Nicotine dependence, cigarettes, with unspecified nicotine-induced disorders (8) Hypokalemia Priority: Secondary Status: Acute (9) DVT prophylaxis Priority: Secondary Status: Acute Hospital course: Mr. French is a 36 year old male admitted for hallucinations likely secondary to acute psychosis and drug withdrawal. He was admitted to step down unit with telemetry. He was placed on CIWA protocol for likely benzodiazepine and opioid withdrawal. He did have agitation the first night, controlled by haldol and ativan. He was subsequently started on precedex drip. This was weaned and discontinued the next day. He did not have any more agitation. He did not exhibit any withdrawal symptoms. He was medically cleared. He still continued to have hallucinations. Psychiatry was consulted and recommended starting antipsychotic. He was started on zyprexa 5 mg PO BID. He was accepted for admission to inpatient psychiatry on [facility]. He was given KCl for mild hypokalemia. He will be discharged to inpatient psychiatry. They can recheck BMP tomorrow. Patient has met maximum benefit of this hospitalization and will be transferred to inpatient psychiatry in stable condition. Discharge discussed with: patient, family, nurse, case management, other ( Pharmacist) - Time Spent with Patient Total time spent providing and/or coordinating discharge services: Greater than 30 minutes - Discharge Medications Home Medications: No Known Home Drugs 09/21/17 [History] Allergies/Adverse Reactions: 3 Allergy/AdvReac Type Severity Reaction Status Date / Time vancomycin Allergy Redness of Verified 04/12/15 22:35 Skin Date of admission: 09/22/17 15:55 Primary care physician: PCP NONE Consults: Psychiatry 09/23/17 12:11 Consult to Nutrition [CONS] Routine Comment: Consulting Provider: NUTRITION Reason for Dietary Consult: Diet Education PO Supplementation Discharging clinician: Fuentes Mireles Anticipated date of discharge: 09/23/17 - Constitutional Vitals: Temp Pulse Resp BP Pulse Ox 98.6 F 75 16 128/79 98 09/23/17 15:05 09/23/17 15:05 09/23/17 15:05 09/23/17 15:05 09/23/17 15:05 Exam: PLEASE SEE EXAMINATION FROM TODAY'S PROGRESS NOTE - Patient Status Disposition: Admitted As Inpatient Condition: Good Functional capacity at discharge: independent ambulation Overall status at discharge: patient is progressing back to baseline - Discharge Instructions Follow Up With: Jerry Enriquez DO [Resident] - 09/30/17 10:15 am Additional Instructions: Follow up with psychiatrist at acute inpatient psychiatric floor. Recheck BMP tomorrow (hypokalemia). - Diet and Activity Activity: resume usual activities as tolerated Diet: regular diet (Ensure Enlive TID)
== END 2017-09-23 18:33 | DRG 773 ==
LOC: EMEROO 02:42 → 3BNU 02:42 → 2NNU 19:50
PROVIDERS: ADMIT Internal Medicine; ATTEND Internal Medicine

== ENCOUNTER 2017-09-23 18:39 | Inpatient (IN) ==
[2017-09-23] MEDS ORDERED: traZODone 50 MG TABLET PO PRN (18:46)
[2017-09-23] MEDS ORDERED: *HR* LORazepam 1 MG TABLET PO PRN (18:46)
[2017-09-23] MEDS ORDERED: MOM Conc 10 ML UD.LIQ PO PRN (18:46)
[2017-09-23] MEDS ORDERED: hydrOXYzine pamoate 25 MG CAPSULE PO PRN (18:46)
[2017-09-23] MEDS ORDERED: Haloperidol Lactate 5 MG/ML VIAL IM PRN (18:46)
[2017-09-23] MEDS ORDERED: Ibuprofen 400 MG TABLET PO PRN (18:46)
[2017-09-23] MEDS ORDERED: *HR* LORazepam 2 MG/ML VIAL IM PRN (18:46)
[2017-09-23] MEDS ORDERED: Mag Hydrox/Al Hydrox/Simeth 30 ML UDC PO PRN (18:46)
[2017-09-24] MEDS: risperiDONE 1 MG TABLET PO SCH (09:57)
[2017-09-24] MEDS: Nicotine 21 MG PATCH.TD24 TD SCH (09:57)
--- NOTE | 2017-09-24 10:16 | Psychiatry History & Physical ---
Date of Encounter: 09/24/17 Time of Encounter: 10:09 History of Present Illness Patient Stated Chief Complaint: psychosis Medicare Admission Attestation: For traditional Medicare patients the provided hospital inpatient services are reasonable and necessary and in the case of services not specified as inpatient -only under 42 CFR 419.22 (n), that they are appropriately provided as inpatient services in accordance 42 CFR 412.3. For Critical Access Hospital the patient may reasonably be expected to be discharged or transferred to a hospital within 96 hours after admission to the Critical Access Hospital. Admitted From: Intrahospital Transfer Plans for Post Hospital Care: Home History of Present Illness: Mr. French is a 36 year old male who was transferred from the medical floor due to psychosis. He had been in detention where he likely experienced acute benzo withdrawal. Was treated for Xanax withdrawal on the medical floor. Calmed significantly but had residual psychosis. Continued to have AH and fear of the detention and what was done to him there. See psychiatry consult note for more details. No psych history. Admitted to [facility] last night and started on Risperdal. Already clearing. AH have stopped. Still very delusional about what happened to him in the detention but he is less paranoid overall. Girlfriend is supportive and she was able to provide a lot of information yesterday. She was reluctant to have him at home in such a psychotic state as they have a . Will get feedback from her today regarding her comfort level having him home. 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 Client is willing to go to rehab to avoid [facility]. Facing felony charges for drug trafficking. Will give him one more night on the antipsychotics and discharge tomorrow provided girlfriend feels safe. Will have social welfare clerk call him Tuesday with rehab options. Past Med Surg Social Fam HX - Past Medical History Medical history: no medical history - Past Psychiatric History Psychiatric history: Reports: no psych history Family psychiatric history: No Family History of Suicide: Unknown - Past Surgical History Surgical History: non-contributory - Social History Smoking Status: Current every day smoker Smokeless Tobacco Status: No Alcohol use: none Drug use: opiates, marijuana, prescription drug abuse - Family History Mother Hx Family Endocrine Disorder: Yes (DM) Father Hx Family Cardiac Disorders: Yes (heart disease) Hx Family Cancer: Yes (pancriatic cancer) Medications & Allergies No Known Home Drugs 09/21/17 [History] 3 Allergy/AdvReac Type Severity Reaction Status Date / Time vancomycin Allergy Redness of Verified 04/12/15 22:35 Skin Review of Systems Constitutional: Denies: fever, chills, weakness, weight change Eyes: Denies: eye pain, vision change Ears, Nose, Throat: Denies: ear pain, throat pain, dental pain, hearing loss, congestion Cardiovascular: Denies: chest pain, palpitations, dyspnea on exertion Respiratory: Denies: cough, dyspnea, wheezes Gastrointestinal: Denies: abdominal pain, nausea, vomiting, diarrhea, constipation Genitourinary male: Denies: urgency, dysuria, frequency, genital lesions Musculoskeletal: Denies: joint swelling, joint pain Integumentary: Denies: rash, lesions, pruritus Neurological: Denies: headache, weakness, numbness, memory loss Endocrine: Denies: fatigue, heat or cold intolerance Hematologic/Lymphatic: Denies: easy bruising, lymphadenopathy Allergic/Immunologic: Denies: urticaria, itchy eyes Exam - HEENT Head exam IM: Present: atraumatic Eye exam IM: Present: EOMI, normal appearance, PERRL ENT exam IM: Present: mucous membranes dry - Neurological Neurological exam: Present: CN II-XII intact - Respiratory Respiratory exam IM: Present: CTAB - GI/Abdominal GI/Abdominal exam IM: Present: normal bowel sounds, soft. Absent: tenderness - Extremities Extremities exam IM: Present: full ROM - Skin Skin exam IM: Present: dry, warm - Constitutional Vitals: Temp Pulse Resp BP 98.9 F 60 16 113/79 09/23/17 21:00 09/23/17 21:00 09/23/17 21:00 09/23/17 21:00 General appearance: age & developmentally appropriate, well-groomed, well- nourished - Musculoskeletal Gait: normal Station: relaxed Strength & Tone: normal for patient - Psychiatric Patient Orientation: Yes Person, Yes Time, Yes Place Level of alertness: Alert Behavior: calm, cooperative Psychomotor activity: Normal Eye Contact: Maintains Eye Contact Mood Description: Euthymic/stable Affect description: congruent with mood, full range Speech Volume: Normal Speech pattern: normal rate, normal rhythm, normal tone, fluent, spontaneous Language & Vocabulary: consistent with education Thought Process: Linear, Goal Oriented Thought Content: No Suicidal ideation, No Homicidal ideation, Yes Overt delusions, Yes Paranoid delusion Perceptual Disturbances: No Auditory hallucinations, No Visual hallucinations Attention Span Ability: Capable of Focused Attention Memory Description: Grossly Intact Patient Reliability: Reliable Historian Fund of knowledge: Yes abstraction ability, Yes average, Yes aware of current events Intelligence Estimate: Below Average Judgment: Limited Insight: Partial Assessment and Plan (1) Benzodiazepine withdrawal Current visit: No Status: Resolved Plan: Admit inpatient for safety and stabilization, Close observation, Suicide Precautions per unit protocol, Encourage participation in unit milieu, Group Therapy, Monitor sleep, Monitor appetite Risks, benefits, side effects, alternatives discussed w/pt: Yes Patient agreeable to treatment: Yes Plans for Post Hospital Care: Home Estimated Length of Stay (Days): 2 Qualifiers: Complication of substance-induced condition: with unspecified complication Qualified Code(s): F13.239 - Sedative, hypnotic or anxiolytic dependence with withdrawal, unspecified (2) Substance abuse withdrawal, with perceptual disturbance Current visit: Yes Status: Acute Plan: Admit inpatient for safety and stabilization, Close observation, Suicide Precautions per unit protocol, Encourage participation in unit milieu, Group Therapy, Monitor sleep, Monitor appetite Risks, benefits, side effects, alternatives discussed w/pt: Yes Patient agreeable to treatment: Yes Plans for Post Hospital Care: Home Estimated Length of Stay (Days): 2
[2017-09-25] MEDS: risperiDONE 1 MG TABLET PO SCH (08:28)
[2017-09-25] MEDS: Nicotine 21 MG PATCH.TD24 TD SCH (08:28)
--- NOTE | 2017-09-25 09:31 | Discharge Summary ---
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, hypnotic or anxiolytic dependence with withdrawal, unspecified (2) Substance abuse withdrawal, with perceptual disturbance Status: Acute Medications - Discharge Medications Prescriptions: risperiDONE [RisperDAL] 1 mg PO DAILY #14 tablet risperiDONE [RisperDAL] 1 mg PO DAILY #14 tablet 09/25/17 [Rx] 3 Allergy/AdvReac Type Severity Reaction Status Date / Time vancomycin Allergy Redness of Verified 04/12/15 22:35 Skin Provider Date of admission: 09/23/17 18:39 Discharging clinician: Lubna Rodriguez Psychiatry Exam - Constitutional Vitals: Temp Pulse Resp BP 98.6 F 80 20 134/106 09/24/17 21:00 09/24/17 21:00 09/24/17 21:00 09/24/17 21:00 General appearance: age & developmentally appropriate, well-groomed, well- nourished - Musculoskeletal Gait: normal Station: relaxed Strength & Tone: normal for patient - Psychiatric Patient Orientation: Yes Person, Yes Time, Yes Place Level of alertness: Alert Behavior: calm Psychomotor activity: Normal Eye Contact: Maintains Eye Contact Mood Description: Euthymic/stable Affect description: congruent with mood, full range Speech Volume: Normal Speech pattern: normal rate, normal rhythm, normal tone, fluent, spontaneous Language & Vocabulary: consistent with education Thought Process: Linear, Goal Oriented Thought Content: No Suicidal ideation, No Homicidal ideation, No Overt delusions Perceptual Disturbances: No Auditory hallucinations, No Visual hallucinations Attention Span Ability: Capable of Focused Attention Memory Description: Grossly Intact Patient Reliability: Reliable Historian Fund of knowledge: Yes abstraction ability, Yes aware of current events Intelligence Estimate: Below Average Judgment: Fair Insight: Partial Hospital Course Hospital course: Mr. French is a 36 year old male who was admitted from the medical floor. He was admitted to the hospital from retirement in an acute psychotic state. [place] to be due to benzodiazepine withdrawal. Given benzos on medical floor and transferred to [facility] due to residual psychosis. Started on Risperdal and he cleared very quickly. No longer hearing voices. Paranoia about retirement has decreased significantly. In a good mood today. Bright, smiling, future oriented. Denies SI/HI. Never had any thoughts of harming self or others. Fully cooperative in the hospital. Girlfriend supportive and he will be returning to live with her and children. Will continue Risperdal as an outpatient for a couple of weeks and have him follow-up with a psychiatrist or PCP. Doubt he needs to stay on the medication longterm. Will have outreach and education social worker call him tomorrow about follow-up and to provide recommendations for substance abuse treatment. - Time Spent with Patient Total time spent providing and/or coordinating discharge services: Assessment and Plan - Patient/Caregiver Discharge Instructions Activity: resume usual activities as tolerated Diet: regular diet - Follow up Plan Follow up with: Gladis Diallo [facility] [Outside] ([facility] staff will contact you with appointment dates and times) Functional capacity at discharge: independent ambulation Overall status at discharge: Stable Disposition: Home, Self-Care Quality - Multiple Antipsychotics Patient discharged on 2 or more antipsychotic medications: No Procedures - Procedures Procedures: Medication Management, Crisis Stabilization, Supportive Therapy, Group Therapy
[2017-09-25 09:32] VITALS: BP 158/97
== END 2017-09-25 10:40 | disposition home or self-care (01) | DRG 773 ==
LOC: 1ANU 18:39
PROVIDERS: ADMIT Psychiatry & Neurology Psychiatry; ATTEND Psychiatry & Neurology Psychiatry